=== PATIENT | male | born 1950 | race Caucasian/White ===

== ENCOUNTER → 2020-07-09 09:53 | Outpatient (CLI) | payer MEDICARE, OTHER, SELFPAY ==
[2020-07-09 13:55] LABS: Coronavirus 19 IgG Antibody Positive (Negative)
[2020-07-09 13:56] LABS: Coronavirus 19 IgM Antibody Positive (Negative)
--- NOTE | 2020-07-09 17:01 | PC.NURSE ---
Notified patient that covid antibody test was positive and to come in for a swab.
== END ==
PROVIDERS: Visit Provider Internal Medicine Gastroenterology
DX: Z01.812 Encounter for preprocedural laboratory examination (principal); Z20.822 Contact with and (suspected) exposure to COVID-19; Z86.16 Personal history of COVID-19; Z12.11 Encounter for screening for malignant neoplasm of colon
CPT/HCPCS: 36415; 86328; U0003

== ENCOUNTER 2020-08-15 10:29 | Day surgery (SDC) | payer MEDICARE, OTHER, SELFPAY ==
[2020-08-10 12:17] VITALS: BMI 25.8
[2020-08-15] VITALS (7 sets, daily range): BP systolic 104–145; BP diastolic 62–82; PULSE 62–78; RESP 12–18; TEMP 36.3–36.6; O2SAT 97–100
--- NOTE | 2020-08-15 11:13 | P.PN_ITS ---
[facility] Anesthesia Checklist - Patient Identification Patient Identification: Arm Band - Structural Data Admitted From: Home Planned Operative Procedure/s: colonoscopy Consent for Planned Operative Procedure(s) Verified: Yes Verified Documents: Surgical Consent, History and Physical - NPO Status Verified Time NPO: 00:00 - Additional verifications Anesthesia Reactions: No - Airway Assessment C-Spine Mobility Assessed: Yes (mp2) TMJ Mobility Assessed: Yes Dentition: Good Dentition - Neurological Assessment Level of Consciousness: Awake, Alert - Anesthesia Plan Anesthesia Risk discussed: Yes Anesthesia Plan: Verified ASA Class: I Anesthesia Type: MAC [facility] History I have reviewed the patient's past medical history: Yes Medical History: Denies:: Cancer, Diabetes Mellitus Type 1, Diabetes Mellitus Type 2, Internal Pacemaker, MRSA, Seizures *Have you ever received a pneumonia vaccine?: No *Have you received a flu vaccine this season?: No Anesthesia experience/problems:: nac Other Surgeries: Yes: Hernia Repair. No: Pacemaker Amputation: No Fractures: No - *Social History Last grade of school completed: Advanced degree Smoking Status: Never smoker Alcohol Intake: current Alcohol Intake Frequency:: a few times a week Substance Use Type: denies use *Occupational Status:: retired Housing: house Household Members: spouse *Travel in the last 8 weeks: None Family Hx:: Coronary Artery Disease, Diabetes
--- NOTE | 2020-08-15 11:43 | P.PCN_ITS ---
[facility] Procedure Note Procedure Note:: Colonoscopy Procedure Report: Colonoscopy with cold snare polypectomy and snare cautery Endoscopist: Angel Kapadia II, MD Referring physician: Donell Arteaga MD Date of Procedure: August 15, 2020 Equipment: Olympus 190 variable stiffness pediatric colonoscope Sedation: MAC sedation Indication: Mr. Michele is a 70-year-old gentleman who is here for diagnostic colonoscopy. For several months, he has had lower abdominal pain and some generalized abdominal pain. This began in the left lower quadrant. He does have occasional hemorrhoidal bleeding. More recently, he did have one bout of black tarry stools. He does take ibuprofen 3 times weekly. He also has had more constipation recently with bloating. He reports no weight loss or family history of colon cancer. His last colonoscopy was 16 years ago and was reportedly normal.. Procedure: Prior to the procedure, a history and physical exam was performed, and patient's medications and allergies were reviewed. The risks, benefits and alternatives of the sedation and procedure were discussed with the patient. All questions were answered and informed consent was obtained. The patient was brought to the procedure room. Patient identification and proposed procedure were verified by the physician and the nurse. The patient was placed in a left lateral decubitus position and the scope was passed under direct vision. Throughout the procedure, the patient's blood pressure, pulse, and oxygen saturations were monitored continuously. The colonoscopy was accomplished without difficulty. The patient tolerated the procedure well. Findings: On digital rectal examination there was normal rectal tone. There were no external hemorrhoids. The prostate was 2+, smooth, symmetric without nodules. The colonoscope was introduced through the anal canal to the rectum and advanced to the cecum. The ileocecal valve and appendiceal orifice were identified. The scope was advanced a short distance into the ileum which appeared grossly normal. The scope was then withdrawn into the colon. There were a total of 10 colon polyps (cecum x6 (3, 4, 4, 4, 5 and 7 mm), ascending x2 (5 and 6 mm), descending x1 (4 mm) and sigmoid x1 (15-16 mm)). All of these were removed via cold snare polypectomy except for the larger sigmoid polyp that was removed via snare cautery. There were scattered diverticuli throughout the descending and sigmoid colon (LEFT colon). The rectum itself was normal. Upon retroflexion within the rectum there were grade 1-2 internal hemorrhoids. The preparation was fair throughout with Marion Preparation Score of 7 out of 9. The cecal time was 16 minutes. Impression: 1. Colonic polyps x10 2. Left-sided diverticulosis 3. Grade 1-2 internal hemorrhoids Plan: I will follow up the polyp histology and recommend repeat screening/surveillance colonoscopy again in 1 to 2 years based upon the number of adenomatous polyps, size and histology. I will encourage dietary measures and bulk fiber supplementation on a maintenance basis.
== END 2020-08-15 12:41 | disposition home or self-care (01) ==
PROVIDERS: PCP Family Medicine; Visit Provider Internal Medicine Gastroenterology
PROC: 0DJD8ZZ Inspection of Lower Intestinal Tract, Via Natural or Artificial Opening Endoscopic (ICD-10-PCS; CPT 45378; principal; 2020-08-15 11:30)
DX: K63.5 Polyp of colon (principal); K57.30 Diverticulosis of large intestine without perforation or abscess without bleeding; K64.0 First degree hemorrhoids; Z82.49 Family history of ischemic heart disease and other diseases of the circulatory system; Z83.3 Family history of diabetes mellitus
CPT/HCPCS: 45385; 88305

== ENCOUNTER → 2020-11-17 14:31 | Outpatient (CLI) | payer MEDICARE, OTHER, SELFPAY ==
[2020-11-17 15:13] LABS: Blood Urea Nitrogen 14 mg/dl (9-20); Estimated Glomerular Filt Rate 95 ml/min (>60); GFR (African American) 115 ML/MIN (>60)
== END ==
PROVIDERS: Visit Provider Family Medicine
DX: Z01.818 Encounter for other preprocedural examination (principal)
CPT/HCPCS: 36415; 82565; 84520

== ENCOUNTER → 2020-11-22 10:22 | Outpatient (CLI) | payer MEDICARE, OTHER, SELFPAY ==
--- NOTE | 2020-11-22 10:26 | CT_ITS ---
PROCEDURE: CT ABDOMEN PELVIS W CON CLINICAL INDICATION: ADB AND PELVIC SWELLING,MASS OR LUMP, PENUMBILIC COMPARISON: No exams were available for comparison TECHNIQUE: IV Contrast: 75ML Isovue 370 Oral Contrast 450ml Redicat Axial images obtained with sagittal and coronal reformats. All CT scans at the facility use one or more dose reduction, viz: automated exposure control, ma/kV adjustment per patient size (including targeted exams where dose is matched to indication, i.e. head), or iterative reconstruction technique. FINDINGS: Lung bases show some scar versus atelectasis. There is mild diffuse fatty infiltration of the liver. No focal liver or splenic lesion. Gallbladder pancreas and adrenal glands are normal. There is severe left hydronephrosis and left hydroureter. There is mild right hydronephrosis and mild right hydroureter. There is a large lobular shaped mass associated with the prostate gland, measuring upwards of 4.5 centimeters x 6 centimeters x 5 centimeters in greatest AP transverse and craniocaudal dimensions. The urinary bladder is markedly distended arising superior to the level of about the L3 vertebral body. Findings are concerning for neoplasm of the prostate gland with obstruction of the bilateral UVJ regions left greater than right with associated bladder outlet obstruction as well. There is no free intraperitoneal air or fluid. There are some scattered small upper abdominal lymph nodes. Scattered diverticula noted on the colon without diverticulitis. No distended large or small bowel. No discrete abnormality of the seminal vesicles is noted. No inguinal or femoral hernias. Several variably sized bilateral inguinal lymph nodes are present. Some diffuse degenerative changes of lumbar spine are noted. No definitive lytic or blastic lesion. Some degenerative changes of both hip joints. IMPRESSION: Severe left hydronephrosis and left hydroureter with mild right hydronephrosis and mild right hydroureter with large lobular shaped mass associated with prostate gland. Marked distention of the urinary bladder. 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 Mild diffuse fatty infiltration of the liver. Scattered diverticula in the colon without diverticulitis. A few small nonspecific upper abdominal lymph nodes with several variably sized nonspecific bilateral inguinal lymph nodes. Diffuse degenerative changes of the lumbar spine with no definitive lytic or blastic lesion. Findings were discussed by telephone with Dr. Arteaga on 11/22/2020 at approximately 1500 hours. Dictated by: Thong Skaggs MD 11/22/2020 15:06 Thong Skaggs MD in [place] 11/22/2020 15:06
== END ==
PROVIDERS: PCP Family Medicine; Visit Provider Family Medicine
DX: R10.33 Periumbilical pain (principal); R19.05 Periumbilic swelling, mass or lump
CPT/HCPCS: 74177; Q9967

== ENCOUNTER → 2021-01-30 13:58 | Outpatient (CLI) | payer MEDICARE, OTHER, SELFPAY ==
--- NOTE | 2021-01-30 14:07 | XR_ITS ---
PROCEDURE: XR SHOULDER RT MIN 2V CLINICAL INDICATION: RT SHOULDER PAIN COMPARISON: No exams were available for comparison FINDINGS: No fracture or dislocation. No lytic or blastic change. There is normal mineralization. There are mild osteoarthritic changes of the glenohumeral joint and acromioclavicular joint. There is a slightly low lying humeral head. Calcification is present along the superior aspect of the humeral head consistent with calcific tendinitis. Other findings:None. IMPRESSION: Mild osteoarthritis of the AC joint and glenohumeral joint with calcific tendinitis of the supraspinatus tendon Dictated by: Stevenson Terrell MD 01/30/2021 16:00 Stevenson Terrell MD in [facility] 01/30/2021 16:00
--- NOTE | 2021-01-30 14:07 | XR_ITS ---
PROCEDURE: XR SHOULDER LT MIN 2V CLINICAL INDICATION: LT SHOULDER PAIN COMPARISON: No exams were available for comparison FINDINGS: No fracture or dislocation. No lytic or blastic change. There is normal mineralization. Mild osteoarthritic changes are present at the acromioclavicular and glenohumeral joint. Faint calcification noted superior to the greater tuberosity suggesting calcific tendinitis. Other findings:None. IMPRESSION: Osteoarthritis with calcific tendinitis of the supraspinatus tendon Dictated by: Stevenson Terrell MD 01/30/2021 17:36 Stevenson Terrell MD in [facility] 01/30/2021 17:36
--- NOTE | 2021-01-30 14:07 | XR_ITS ---
PROCEDURE: XR CERVICAL SPINE 5V CLINICAL INDICATION: CERVICAL ARTHRITIS COMPARISON: No exams were available for comparison FINDINGS: There is normal alignment. Degenerative disc disease is present at C5-C6. There is 3 mm retrolisthesis of C5. Anterior osteophytes are present at C4 and C5 with small posterior osteophytes at C5-C6 and C6-C7. Foraminal narrowing is present on the right at C3-C4 and C5-C6 and on the left at C4-C5 and C5-C6. No cervical rib. No fracture or dislocation. Carotid artery calcification is present on the left. There are hypertrophic changes also at the C1-C2 lateral mass junctions. IMPRESSION: Cervical spondylosis as described above Dictated by: Stevenson Terrell MD 01/30/2021 17:34 Stevenson Terrell MD in [facility] 01/30/2021 17:34
== END ==
PROVIDERS: PCP Family Medicine; Visit Provider Family Medicine
DX: M25.512 Pain in left shoulder (principal); M25.511 Pain in right shoulder; M17.12 Unilateral primary osteoarthritis, left knee; M54.12 Radiculopathy, cervical region; R29.898 Other symptoms and signs involving the musculoskeletal system
CPT/HCPCS: 72050; 73030

== ENCOUNTER 2022-11-08 08:14 | Emergency (ER) | payer MEDICARE, OTHER, SELFPAY ==
[2022-11-08 08:25] VITALS: BP 150/78; PULSE 89; RESP 21; TEMP 36.9; O2SAT 100; BMI 25.4
--- NOTE | 2022-11-08 08:41 | EXP.UTC ---
Discharge Plan Disposition Patient Disposition: Home, Self-Care Condition: Good Prescriptions Prescriptions: New prednisone 10 mg tablet 10 mg PO BID 5 Days Qty: 10 0RF azithromycin [Zithromax Z-Mahad] 250 mg tablet See Rx Instructions .ROUTE .COMPLEX 5 Days Qty: 6 0RF Rx Instructions: For 250 mg dose pack: take 500 mg today (day 1), then 250 mg for 4 days (days 2-5) benzonatate 100 mg capsule 100 mg PO TID PRN (Reason: cough) Qty: 30 0RF guaifenesin [Mucinex] 600 mg tablet extended release 12hr 600 - 1,200 mg PO BID PRN (Reason: Congestion) Qty: 20 0RF Referrals Follow up/Referrals: Provider,Referral, MD [Primary Care Provider] - See instructions Activity Restrictions/Add. Instructions Additional Instructions/Restrictions: Start antibiotic today. Be sure to complete entire prescription even if feeling better Monitor temp. Tylenol every 4 hours as needed and / or ibuprofen every 6 hours as needed ( As long as your primary care physician has told you that it ok to take both. For fever/aches/pains ER if no less than 101 despite Tylenol or Motrin Humidifier/vaporizer or hot steamy shower Mucinex during the day for your cough and cough suppressant only at night. Be sure to drink lots of water. *Tessalon Perles will not cause drowsiness but use at bedtime to help stop cough so that you may get some rest. Start oral steriods tomorrow 11/09/22 Follow up IMMEDIATELY for new or worsening of symptoms OR no noticeable improvement over the next 48-72 hours. 911 immediately for any life threatening symptoms such as chest pain or difficulty breathing Clinical Impressions Clinical Impression: Bronchitis Instructions Patient Instructions: Acute Bronchitis, DI for Sinusitis Discharge ED Provider: Nimo Vila [facility] General Stated complaint: cough, chest congestion Mode of Arrival: Ambulatory Source of Information: Patient Limitations: No Limitations Time Seen by Provider: 11/08/22 08:41 Description of Symptoms (Recalled from Triage Doc. by RN): PATIENT C/O PRODUCTIVE COUGH AND CHEST CONGESTION X 9 DAYS. REPORTS COUGH IS WORSE AT NIGHT HEENT Symptoms (Recalled from RN notes): No Resp Symptoms (Recalled from RN notes): Yes Skin Symptoms (Recalled from RN notes): No MS Symptoms (Recalled from RN notes): No Functional Status (Recalled from RN notes): WNL History of Present Illness Provider Complaint: Patient states that he has been having cough and chest congestion for about 9 days that is productive at times States that his cough gets worse at night when he lays down States he has been taking OTC medications but not helped thinks he may have bronchitis or something Related Data Previous Rx's Medication Instructions Recorded azithromycin 250 mg tablet See Rx Instructions PO .COMPLEX 5 11/08/22 (Zithromax Z-Mahad) days #6 tabs benzonatate 100 mg capsule 100 mg PO TID PRN cough #30 caps 11/08/22 guaifenesin 600 mg tablet, 600 - 1,200 mg PO BID PRN 11/08/22 extended release 12 hr (Mucinex) Congestion #20 tabs prednisone 10 mg tablet 10 mg PO BID 5 days #10 tabs 11/08/22 Allergies Allergy/AdvReac Type Severity Reaction Status Date / Time No Known Allergies Allergy Verified 08/10/20 12:07 Worker's Comp Is this a Worker's Comp case?: No [facility] Disclaimer: The information contained in this section may have been updated after the patient was seen, as this information can be updated by other users. Medical History (Updated 11/08/22 @ 08:48 by Nimo Vila APRN) Depression Prostate disorder Surgical History (Updated 11/08/22 @ 08:40 by Jane Stock RN) History of inguinal hernia repair History of transurethral resection of prostate Social History Smoking Status: Never smoker second hand exposure: No alcohol intake: current substance use type: denies use current occupational status: retired Travel in the last 8 wee
[2022-11-08 09:15] VITALS: BP 150/78; PULSE 89; RESP 21; TEMP 36.9; O2SAT 100
== END 2022-11-08 09:24 | disposition home or self-care (01) ==
PROVIDERS: Emergency Provider Nurse Practitioner
DX: J20.9 Acute bronchitis, unspecified (principal); J01.90 Acute sinusitis, unspecified; F32.9 Major depressive disorder, single episode, unspecified
CPT/HCPCS: 96372; 99204; 99212; G0463

== ENCOUNTER 2022-11-10 10:46 | Emergency (ER) | payer MEDICARE, OTHER, SELFPAY ==
[2022-11-10 10:50] VITALS: BP 138/75; PULSE 99; RESP 16; TEMP 36.6; O2SAT 97; BMI 26.2
--- NOTE | 2022-11-10 11:12 | EXP.UTC ---
Discharge Plan Disposition Patient Disposition: Home, Self-Care Condition: Good Prescriptions Prescriptions: New promethazine-DM 6.25-15 mg/5 mL Syrup 5 ml PO Q6H PRN (Reason: Cough) Qty: 240 0RF No Action prednisone 10 mg tablet 10 mg PO BID 5 Days Qty: 10 0RF azithromycin [Zithromax Z-Mahad] 250 mg tablet See Rx Instructions .ROUTE .COMPLEX 5 Days Qty: 6 0RF Rx Instructions: For 250 mg dose pack: take 500 mg today (day 1), then 250 mg for 4 days (days 2-5) benzonatate 100 mg capsule 100 mg PO TID PRN (Reason: cough) Qty: 30 0RF guaifenesin [Mucinex] 600 mg tablet extended release 12hr 600 - 1,200 mg PO BID PRN (Reason: Congestion) Qty: 20 0RF Referrals Follow up/Referrals: Donell Arteaga MD [Primary Care Provider] - See instructions Activity Restrictions/Add. Instructions Additional Instructions/Restrictions: Start the medications that were prescribed last Saturday. Take the medications as directed. Follow up with your regular doctor. The cough medication (promethazine dm) will make you drowsy, so don't drive or operate heavy machinery after taking it. GO TO THE ER FOR ANY WORSENING SYMPTOMS Clinical Impressions Clinical Impression: Bronchitis Instructions Patient Instructions: Acute Bronchitis, DI for Acute Bronchitis Discharge ED Provider: [place] [facility] [place] General Stated complaint: possible bronchitis Time Seen by Provider: 11/10/22 11:12 History of Present Illness Provider Complaint: He states that for the past 1 week he has had chest and sinus congestion. Related Data Previous Rx's Medication Instructions Recorded azithromycin 250 mg tablet See Rx Instructions PO .COMPLEX 5 11/08/22 (Zithromax Z-Mahad) days #6 tabs benzonatate 100 mg capsule 100 mg PO TID PRN cough #30 caps 11/08/22 guaifenesin 600 mg tablet, 600 - 1,200 mg PO BID PRN 11/08/22 extended release 12 hr (Mucinex) Congestion #20 tabs prednisone 10 mg tablet 10 mg PO BID 5 days #10 tabs 11/08/22 promethazine-DM 6.25 mg-15 mg/5 mL 5 ml PO Q6H PRN Cough #240 mL 11/10/22 oral syrup Allergies Allergy/AdvReac Type Severity Reaction Status Date / Time No Known Allergies Allergy Verified 08/10/20 12:[address] [facility] Disclaimer: The information contained in this section may have been updated after the patient was seen, as this information can be updated by other users. Medical History Depression Prostate disorder Surgical History History of inguinal hernia repair History of transurethral resection of prostate Social History Smoking Status: Never smoker second hand exposure: No alcohol intake: current substance use type: denies use current occupational status: retired Travel in the last 8 weeks: None household members: spouse housing: house caffeine: Yes ROS Obtained: Yes All systems reviewed & no additional complaints except as documented Constitutional Constitutional: Denies chills and Denies fever(s) Eyes Eyes: Denies eye discharge ENT Ears, Nose, Mouth, and Throat: Denies dizziness, Denies otalgia and Denies sore throat Cardiovascular Cardiovascular: Denies chest pain Respiratory Respiratory: Denies shortness of breath, Reports chest congestion, Reports cough, Denies stridor and Denies wheezing Gastrointestinal Gastrointestingal: Denies nausea or vomiting Musculoskeletal Musculoskeletal: Reports system reviewed and no additional complaints, except as documented and Denies arthralgias Integumentary/Breasts Skin/Breast: Denies rash Neurologic Neurologic: Denies dizziness and Denies paresthesias Allergic/Immunologic Allergic/Immunologic: Denies wheezing Physical Exam General General appearance: alert and in no apparent distress Head Head exam: atraumatic, normocephalic and normal i
--- NOTE | 2022-11-10 11:16 | XR_ITS ---
PROCEDURE INFORMATION: Exam: XR Chest Exam date and time: 11/10/2022 11:11 AM Age: 72 years old Clinical indication: Cough TECHNIQUE: Imaging protocol: Radiologic exam of the chest. Views: 2 views. COMPARISON: CR XR CERVICAL SPINE 5V 01/30/2021 2:20 PM FINDINGS: Lungs: There are scattered indistinct nodular opacities lower lung zones, nonspecific in needs further evaluation. There is also patchy interstitial infiltrate right lung base concerning for pneumonia. Pleural spaces: Unremarkable. No pleural effusion. No pneumothorax. Heart/Mediastinum: Unremarkable. No cardiomegaly. Bones/joints: Unremarkable for age. IMPRESSION: 1. Patchy right basilar infiltrate possibly secondary to pneumonia . 2. Superimposed scattered ill-defined nodular opacities both lung castillo, nonspecific. Recommend follow-up CT chest for further evaluation.
[2022-11-10 12:02] VITALS: BP 138/75; PULSE 99; RESP 16; TEMP 36.6; O2SAT 97
== END 2022-11-10 12:03 | disposition home or self-care (01) ==
PROVIDERS: Emergency Provider Nurse Practitioner Family; PCP Family Medicine
DX: J20.9 Acute bronchitis, unspecified (principal); F32.9 Major depressive disorder, single episode, unspecified
CPT/HCPCS: 71046; 99212; 99214; G0463

== ENCOUNTER 2024-03-12 13:33 | Emergency (ER) | payer MEDICARE, OTHER, SELFPAY ==
[2024-03-12 13:50] VITALS: BP 138/89; PULSE 97; RESP 14; TEMP 36.9; O2SAT 97; BMI 25.8
[2024-03-12 14:00] VITALS: BP 117/72; PULSE 96; O2SAT 98
--- NOTE | 2024-03-12 14:05 | XR_ITS ---
FINAL REPORT CLINICAL HISTORY: pain FINDINGS: Left knee Three views were obtained. There is no acute fracture or dislocation. There is moderate chondrocalcinosis in the medial and lateral compartments joint spaces. IMPRESSION: No acute process. Reviewed, Interpreted and Dictated by Dilshad Wang MD Transcribed by Claudia Panda Authenticated and [facility]
--- NOTE | 2024-03-12 14:05 | CT_ITS ---
FINAL REPORT TECHNIQUE: Axial images were obtained of the cervical spine by computed tomography. Coronal and sagittal reconstruction process performed. This study was performed with techniques to keep radiation doses as low as reasonably achievable (ALARA). Individualized dose reduction techniques using automated exposure control or adjustment of mA and/or kV according to the patient''s size were employed. CLINICAL HISTORY: fall >65 pain FINDINGS: Cervical vertebrae show normal height. There is mild disc space narrowing at C5-6 and C6-7 with endplate hypertrophy and moderate bilateral neural foraminal narrowing. There is no malalignment. The facets are properly aligned. IMPRESSION: No fracture. Degenerative change at C5-6 and C6-7 as detailed above. Reviewed, Interpreted and Dictated by Dilshad Wang MD Transcribed by Claudia Panda Authenticated and [facility]
--- NOTE | 2024-03-12 14:05 | XR_ITS ---
FINAL REPORT CLINICAL HISTORY: pain FINDINGS: Left hip Three views were obtained. There is no acute fracture or dislocation. The joint spaces appear normal. No soft tissue abnormality is identified. IMPRESSION: No acute process. Reviewed, Interpreted and Dictated by Dilshad Wang MD Transcribed by Claudia Panda Authenticated and [facility]
--- NOTE | 2024-03-12 14:05 | XR_ITS ---
FINAL REPORT CLINICAL HISTORY: pain FINDINGS: Left femur Two views were obtained. There is no acute fracture or dislocation. There is moderate chondrocalcinosis in the medial and lateral compartments of the knee. IMPRESSION: No acute process. Reviewed, Interpreted and Dictated by Dilshad Wang MD Transcribed by Claudia Panda Authenticated and . [facility]
--- NOTE | 2024-03-12 14:05 | CT_ITS ---
FINAL REPORT TECHNIQUE: Axial images were obtained of the thoracic spine by computed tomography. Coronal and sagittal reconstruction process performed. This study was performed with techniques to keep radiation doses as low as reasonably achievable (ALARA). Individualized dose reduction techniques using automated exposure control or adjustment of mA and/or kV according to the patient's size were employed. CLINICAL HISTORY: fall >65 pain FINDINGS: Thoracic vertebrae show normal height. Disc spaces are well-preserved. There is no malalignment. The facets are properly aligned. IMPRESSION: No fracture. Reviewed, Interpreted and Dictated by Dilshad Wang MD Transcribed by Claudia Panda Authenticated and . [facility]
--- NOTE | 2024-03-12 14:05 | CT_ITS ---
FINAL REPORT TECHNIQUE: After the administration of intravenous contrast, axial images were obtained through the abdomen and pelvis by computed tomography. This study was performed with technique to keep radiation doses as low as reasonably achievable, (ALARA). Individualized dose reduction techniques using automated exposure control or adjustment of the MA and/or KV according to the patient's size were employed. CLINICAL HISTORY: LLQ pain, h/o diverticulitis COMPARISON: 11/22/2020 FINDINGS: Abdomen: The lung bases are clear. The liver is normal in size and attenuation. Gallbladder is present. There are calcified granulomas of the spleen. The adrenals are normal. The pancreas is unremarkable. The kidneys enhance appropriately. The aorta is normal in caliber. There is no free fluid or adenopathy. Pelvis: The appendix is not identified. The urinary bladder is normal in size but with mild wall thickening of uncertain significance. Prostate has decreased in size from prior exam. There is extensive inflammatory reaction in the left lower quadrant at the junction of the descending and sigmoid colon surrounding a diverticula. Findings are consistent with acute diverticulitis. There is no evidence of abscess. This is best seen on images 87-92 of series 3. IMPRESSION: Acute, uncomplicated diverticulitis at the junction of the descending and sigmoid colon. Nonspecific urinary bladder wall thickening. Reviewed, Interpreted and Dictated by Dilshad Wang MD Transcribed by Regina Morfin Authenticated and [facility]
--- NOTE | 2024-03-12 14:05 | CT_ITS ---
FINAL REPORT TECHNIQUE: Axial CT images were performed through the head. Coronal reformatted images were submitted. This study was performed with techniques to keep radiation doses as low as reasonably achievable (ALARA). Individualized dose reduction techniques using automated exposure control or adjustment of mA and/or kV according to the patient's size were employed. CLINICAL HISTORY: fall >65 pain FINDINGS: The ventricles are normal in size. There is no evidence of hemorrhage. There is no mass or edema identified. There is no abnormal extra-axial fluid seen. There is mild mucoperiosteal thickening in the left maxillary sinus. IMPRESSION: No acute intracranial process. Reviewed, Interpreted and Dictated by Dilshad Wang MD Transcribed by Claudia Panda Authenticated and [facility]
--- NOTE | 2024-03-12 14:07 | CT_ITS ---
FINAL REPORT TECHNIQUE: Axial images were obtained of the lumbar spine by computed tomography. Coronal and sagittal reconstruction process performed. This study was performed with techniques to keep radiation doses as low as reasonably achievable (ALARA). Individualized dose reduction techniques using automated exposure control or adjustment of mA and/or kV according to the patient''s size were employed. CLINICAL HISTORY: fall >65 pain FINDINGS: Lumbar vertebrae show normal height. There is moderate disc space narrowing at L5-S1 with vacuum disc phenomenon. There is no malalignment. The facets are properly aligned. L1-2: No significant disc bulge or protrusion. L2-3: No significant disc bulge or protrusion. L3-4: Mild diffuse disc bulge is present with mild endplate hypertrophy. There is mild bilateral neural foraminal narrowing. L4-5: Mild diffuse disc bulge is present with endplate hypertrophy. There is mild to moderate bilateral neural foraminal narrowing. L5-S1: Mild to moderate diffuse disc bulge is present with mild to moderate bilateral neural foraminal narrowing. IMPRESSION: No fracture. Multilevel degenerative disc disease, most evident at L5-S1. Reviewed, Interpreted and Dictated by Dilshad Wang MD Transcribed by Claudia Panda Authenticated and . [facility]
--- NOTE | 2024-03-12 14:09 | HMH.EDGENADL ---
Discharge Plan Disposition Patient Disposition: Home, Self-Care Condition: Fair Prescriptions Prescriptions: New amoxicillin-pot clavulanate 875-125 mg tablet 1 tab PO BID 10 Days Qty: 20 0RF No Action prednisone 10 mg tablet 10 mg PO BID 5 Days Qty: 10 0RF azithromycin [Zithromax Z-Mahad] 250 mg tablet See Rx Instructions .ROUTE .COMPLEX 5 Days Qty: 6 0RF Rx Instructions: For 250 mg dose pack: take 500 mg today (day 1), then 250 mg for 4 days (days 2-5) benzonatate 100 mg capsule 100 mg PO TID PRN (Reason: cough) Qty: 30 0RF guaifenesin [Mucinex] 600 mg tablet extended release 12hr 600 - 1,200 mg PO BID PRN (Reason: Congestion) Qty: 20 0RF promethazine-DM 6.25-15 mg/5 mL Syrup 5 ml PO Q6H PRN (Reason: Cough) Qty: 240 0RF Referrals Follow up/Referrals: Donell Arteaga MD [Primary Care Provider] - See instructions Activity Restrictions/Add. Instructions Additional Instructions/Restrictions: Your CAT scans of your head and spines were unremarkable from emergency standpoint. You did have uncomplicated diverticulitis on the CT scan of your abdomen. I recommend that you follow-up outpatient with our general surgeon, referral has been made. Return with any significant or acute worsening of your symptoms such as severe abdominal pain fevers chills etc. Clinical Impressions Clinical Impression: Diverticulitis, Fall, Abdominal pain, Knee pain, left Instructions Patient Instructions: DI for Acute Abdominal Pain Print Language Print Language: Hungarian Discharge ED Provider: Loreto Nicholas General Adult HPI <Loreto Nicholas DO - Last Filed: 03/12/24 15:23> General Chief complaint: Abdominal Pain Stated complaint: left knee pain, LLQ pain Time Seen by Provider: 03/12/24 13:55 Mode of Arrival: Ambulatory Source of Information: Patient Limitations: No Limitations Description of Symptoms (Recalled from ER Triage Doc. by RN): pt states that he has two separate complaints for todays visit. pt first c/o L knee joint pain that is aching in nature and only painful with weight bearing. pts knee is not hurting at this time. However, he reports when stepping in a hole this am it gave out and he decided he should have it checked out. pts second complaint is LLQ pain that is sore in nature and a 1/10. pt reports this feels exactly the same as when he previously had diverticulits. pt states the pain worsens with palpation, he has been nauseated, and he was constipated for a few days earlier this week but today it has turned to diarrhea. pt denies urinary issues. History of Present Illness HPI narrative: This patient is a 73-year-old male presenting to the emergency department for evaluation with concern for multiple complaints. Patient reports that initially, 3 weeks ago he started having some generalized joint pains. He states that he felt he was having an inflammatory process in all of his joints. He notes that he has been diagnosed with rheumatoid arthritis in the past but has not really had issues with it. He notes that it then went down to only 3 joints, and now its only his left knee. No redness, warmth, or other concerns. He is still able to bear weight. No known falls or traumatic injuries. He notes that the joint just feels achy. He notes that he also feels like he is having diverticulitis. He says that he has left lower quadrant pain that feels like diverticular pain and has been going on for several days. He notes that he is having some nausea and diarrhea but denies any fevers, chills, vomiting, or urinary symptoms. Additionally, today, he stepped in a hole causing him to fall to the ground. He states that he landed on his back, which is done him for a minute. He notes that he got lightheaded as if he was going to blackout when this happened, but he thinks that the fall just stunned him. He was able to get up on his own without any issue and has been ambulatory since. No other concerns noted at this time. Related Data Previous Rx's ?Medication ?Instructions ?Recorded azithromycin 250 mg tablet See Rx Instructions PO .COMPLEX 5 11/08/22 (Zithromax Z-Mahad) days #6 tabs benzonatate 100 mg capsule 100 mg PO TID PRN cough #30 caps 11/08/22 guaifenesin 600 mg tablet, 600 - 1,200 mg (1 - 2 x 600 mg) PO 11/08/22 extended release 12 hr (Mucinex) BID PRN Congestion #20 tabs prednisone 10 mg tablet 10 mg PO BID 5 days #10 tabs 11/08/22 promethazine-DM 6.25 mg-15 mg/5 mL 5 ml PO Q6H PRN Cough #240 mL 11/10/22 oral syrup amoxicillin 875 mg-potassium 1 tab PO BID 10 days #20 tabs 03/12/24 clavulanate 125 mg tablet Allergies Allergy/AdvReac Type Severity Reaction Status Date / Time No Known Allergies Allergy Verified 03/12/24 13:58 PFSH <Loreto Nicholas DO - Last Filed: 03/12/24 15:23> [facility] Disclaimer: The information contained in this section may have been updated after the patient was seen, as this information can be updated by other users. Medical History Prostate disorder Depression Surgical History History of inguinal hernia repair History of transurethral resection of prostate Social History Smoking Status: Never smoker second hand exposure: No alcohol intake: current alcohol intake frequency: a few times a week substance use type: denies use current occupational status: retired Travel in the last 8 weeks: None household members: spouse housing: house caffeine: Yes Other Medical History Have you received the Flu Vaccine for this season: No Have you received the Pneumonia Vaccine: No <Loreto Nicholas DO - Last Filed: 03/12/24 15:23> ROS Obtained: Yes All systems reviewed & no additional complaints except as documented Physical Exam <Loreto Nicholas DO - Last Filed: 03/12/24 15:23> General General appearance: alert and in no apparent distress Head Head exam: atraumatic and normocephalic Eye Eye exam: Present normal appearance, PERRL and EOMI ENT ENT exam: Present normal exam, normal oropharynx, mucous membranes moist and normal external ear exam Neck Neck exam: Present normal inspection, full ROM and trachea midline; Absent tenderness Chest Chest inspection: Present normal inspection and symmetric chest wall rise; Absent tenderness Respiratory Respiratory exam: Present normal lung sounds bilaterally; Absent respiratory distress, wheezes, stridor or accessory muscle use Cardiovascular Cardiovascular exam: Present regular rate and normal rhythm Abdominal Exam Abdominal exam: Present soft and tenderness (Left lower quadrant); Absent distention or guarding Extremities Exam Extremities exam: Present normal inspection, full ROM and normal capillary refill; Absent tenderness or edema Back Exam Back exam: Present normal inspection and full ROM; Absent tenderness Neurological Exam Neurological exam: Present alert, oriented X3, CN II-XII intact and normal gait; Absent motor sensory deficit Psychiatric Psychiatric exam: Present normal affect and normal mood Skin Skin exam: Present warm and dry Medical Decision Making <Loreto Nicholas, DO - Last Filed: 03/12/24 15:23> Medical Records Medical records reviewed: Yes I reviewed the patient's medical records. Screening: Per USPSTF and CDC recommendations, given the prevalence of disease in our region, it is our hospital?s policy to screen for HIV and viral Hepatitis for all patients aged 18 and over and those with ongoing risk factors. [place] Inquiry Pt receiving controlled substance: No Vital Signs: 03/12/24 13:50 03/12/24 14:00 03/12/24 14:55 Temperature 98.4 F Temperature Source Oral Pulse Rate 96 H 92 H Pulse Rate [Left] 97 H Respiratory Rate 14 Blood Pressure 117/72 137/76 Blood Pressure [Right Arm] 138/89 Blood Pressure Mean [Right Arm] 105 Blood Pressure Source [Right Arm] Automatic Cuff Blood Pressure Position [Right Arm] Sitting 02 Sat by Pulse Oximetry 97 98 97 Oxygen Delivery Method Room Air Room Air Room Air 03/12/24 15:00 Temperature Temperature Source Pulse Rate 93 H Pulse Rate [Left] Respiratory Rate Blood Pressure 135/73 Blood Pressure [Right Arm] Blood Pressure Mean [Right Arm] Blood Pressure Source [Right Arm] Blood Pressure Position [Right Arm] 02 Sat by Pulse Oximetry 98 Oxygen Delivery Method Room Air Lab Data Lab results reviewed: Yes I reviewed the patient's lab results. Lab Results 03/12/24 13:42: Urine Color Yellow, Urine Appearance Clear, Urine pH 6.5, Ur Specific [place] 1.010, Urine Protein Negative, Urine Glucose (UA) Negative, Urine Ketones Trace, Urine Blood Negative, Urine Nitrate Negative, Urine Bilirubin Negative, Urine Urobilinogen 0.2, Ur Leukocyte Esterase Negative, Urine RBC None, Urine WBC Occasional, Ur Squamous Epith Cells None, Urine Bacteria Trace 03/12/24 13:47: WBC 12.0 H, RBC 5.75, Hgb 16.4, Hct 49.2, MCV 85.6, MCH 28.5, MCHC 33.3, RDW 13.7, Plt Count 260, MPV 7.3 L, Neut % (Auto) 83.2 H, Lymph % (Auto) 9.4 L, [place] % (Auto) 6.2, Eos % (Auto) 0.6, Baso % (Auto) 0.5, Neut # (Auto) 10.0 H, Lymph # (Auto) 1.1, [place] # (Auto) 0.8, Eos # (Auto) 0.1, Baso # (Auto) 0.1, ESR 9, Sodium 133 L, Potassium 3.6, Chloride 95 L, Carbon Dioxide 26, Anion Gap 15.6 H, BUN 15, Creatinine 0.90, Estimated Creat Clear 67, Estimated GFR 82, Est GFR ( Amer) 100, Glucose 122 H, Calcium 9.9, Total Bilirubin 1.5 H, AST 27, ALT 21, Alkaline Phosphatase 50, C-Reactive Protein 93.5 H, Total Protein 7.9, Albumin 4.9, Globulin 3.0, Albumin/Globulin Ratio 1.6, Lipase 64, HIV 1&2 Antibody Rapid Nonreactive 03/12/24 13:47 03/12/24 13:47 Orders (Tests/Meds): ED MEDICATIONS Discontinued Medications Generic Name Dose Route Start Last Admin Trade Name Livia PRN Reason Stop Dose Admin Acetaminophen 1,000 mg 03/12/24 14:53 03/12/24 15:12 Acetaminophen 500mg Tab PO 03/12/24 14:54 Not Given ONCE ONE Lactated Ringer's 1,000 mls @ 999 mls/hr 03/12/24 14:53 03/12/24 15:08 Lactated Ringer's 1000 Ml Bag IV 03/12/24 15:53 999 mls/hr .Q1H1M ONE Administration Iopamidol 75 ml 03/12/24 14:51 03/12/24 14:51 Iopamidol-370 (76%);100ml Bottle IV 03/12/24 14:52 75 ml ONCE ONE Administration Ketorolac Tromethamine 15 mg 03/12/24 14:53 03/12/24 15:08 Ketorolac 30mg/Ml Vial IV 03/12/24 14:54 15 mg ONCE ONE Administration Ondansetron HCl 4 mg 03/12/24 14:53 03/12/24 15:08 Ondansetron 4mg/2ml Vial IV 03/12/24 14:54 4 mg ONCE ONE Administration Sodium Chloride 10 ml 03/12/24 14:51 03/12/24 14:51 Sodium Chloride 0.9% 10ml Syr (Rad Only) IV 03/12/24 14:52 10 ml ONCE ONE Administration ORDERS Category Date Time Status CT abdomen pelvis w con Stat Cat Scan 03/12/24 14:[address] cervical spine wo con Stat Cat Scan 03/12/24 14:[address] head/brain wo con Stat Cat Scan 03/12/24 14:[address] lumbar spine wo con Stat Cat Scan 03/12/24 14:[address] thoracic spine wo con Stat Cat Scan 03/12/24 14:05 Completed Femur XR left 2 views [XR femur LT 2V] Stat Exams 03/12/24 14:05 Completed Hip XR left minimum 2 views [XR hip LT 2-3V w/pelvis] Exams 03/12/24 14:05 Completed Stat Knee XR left 3 views [XR knee LT 3V] Stat Exams 03/12/24 14:05 Completed CBC w/Auto Diff [Complete Blood Count Auto Diff] Stat Lab 03/12/24 13:47 Completed CMP [Comprehensive Metabolic Panel] Stat Lab 03/12/24 13:47 Completed CRP [C-Reactive Protein] Stat Lab 03/12/24 13:47 Completed ESR [Erythrocyte Sedimentation Rate] Stat Lab 03/12/24 13:47 Completed HIV (1&2) Antibody Rapid Stat Lab 03/12/24 13:47 Completed Hep C Ab with Reflex to RNA Stat Lab 03/12/24 13:47 Received Lipase Stat Lab 03/12/24 13:47 Completed UA [Urinalysis and Microscopic] Stat Lab 03/12/24 13:42 Completed ECG Data Tracing #1: I reviewed this ECG and interpreted as documented below: Normal sinus rhythm with a ventricular rate of [address] changes concerning for ischemia. Normal axis and intervals ECG initial impression date: 03/12/24 ECG initial impression time: 14:59 Medical Decision Narrative: In summary, this patient is a 73-year-old male presenting to the Emergency Department for evaluation of multiple complaints including joint pains, left lower quadrant pain concerning for diverticulitis, and fall today. Differential diagnoses considered include but are not limited to traumatic injury from fall, arthritis flare, septic arthritis, gouty arthritis, diverticulitis, colitis, constipation. Ruling out the most morbid conditions drove assessment. On exam, the patient is very well-appearing. He has mild left lower quadrant tenderness but otherwise abdominal exam is benign. He is full range of motion of his left knee with no redness, warmth, or significant effusion that would be concerning for septic arthritis. He is still able to bear weight as well, which also makes this less concerning. Workup included CBC, CMP, lipase, urinalysis, EKG, CT head without contrast, CT C/T/L-spine without contrast, CT abdomen and pelvis with IV contrast, and x-rays of the painful left lower extremity. Labs obtained demonstrated a mild leukocytosis, mildly elevated anion gap, mild hyponatremia, mildly elevated bilirubin. CRP is elevated. EKG is reassuring. CT scans and x-rays pending. Patient care signed out to the oncoming provider, Dr. Barnett. <Diana Barnett MD - Last Filed: 03/12/24 16:08> Vital Signs: 03/12/24 13:50 03/12/24 14:00 03/12/24 14:55 Temperature 98.4 F Temperature Source Oral Pulse Rate 96 H 92 H Pulse Rate [Left] 97 H Respiratory Rate 14 Blood Pressure 117/72 137/76 Blood Pressure [Right Arm] 138/89 Blood Pressure Mean [Right Arm] 105 Blood Pressure Source [Right Arm] Automatic Cuff Blood Pressure Position [Right Arm] Sitting 02 Sat by Pulse Oximetry 97 98 97 Oxygen Delivery Method Room Air Room Air Room Air 03/12/24 15:00 Temperature Temperature Source Pulse Rate 93 H Pulse Rate [Left] Respiratory Rate Blood Pressure 135/73 Blood Pressure [Right Arm] Blood Pressure Mean [Right Arm] Blood Pressure Source [Right Arm] Blood Pressure Position [Right Arm] 02 Sat by Pulse Oximetry 98 Oxygen Delivery Method Room Air Lab Data Lab Results 03/12/24 13:42: Urine Color Yellow, Urine Appearance Clear, Urine pH 6.5, Ur Specific [place] 1.010, Urine Protein Negative, Urine Glucose (UA) Negative, Urine Ketones Trace, Urine Blood Negative, Urine Nitrate Negative, Urine Bilirubin Negative, Urine Urobilinogen 0.2, Ur Leukocyte Esterase Negative, Urine RBC None, Urine WBC Occasional, Ur Squamous Epith Cells None, Urine Bacteria Trace 03/12/24 13:47: WBC 12.0 H, RBC 5.75, Hgb 16.4, Hct 49.2, MCV 85.6, MCH 28.5, MCHC 33.3, RDW 13.7, Plt Count 260, MPV 7.3 L, Neut % (Auto) 83.2 H, Lymph % (Auto) 9.4 L, [place] % (Auto) 6.2, Eos % (Auto) 0.6, Baso % (Auto) 0.5, Neut # (Auto) 10.0 H, Lymph # (Auto) 1.1, [place] # (Auto) 0.8, Eos # (Auto) 0.1, Baso # (Auto) 0.1, ESR 9, Sodium 133 L, Potassium 3.6, Chloride 95 L, Carbon Dioxide 26, Anion Gap 15.6 H, BUN 15, Creatinine 0.90, Estimated Creat Clear 67, Estimated GFR 82, Est GFR ( Amer) 100, Glucose 122 H, Calcium 9.9, Total Bilirubin 1.5 H, AST 27, ALT 21, Alkaline Phosphatase 50, C-Reactive Protein 93.5 H, Total Protein 7.9, Albumin 4.9, Globulin 3.0, Albumin/Globulin Ratio 1.6, Lipase 64, HIV 1&2 Antibody Rapid Nonreactive Orders (Tests/Meds): ED MEDICATIONS Discontinued Medications Generic Name Dose Route Start Last Admin Trade Name Freq PRN Reason Stop Dose Admin Acetaminophen 1,000 mg 03/12/24 14:53 03/12/24 15:12 Acetaminophen 500mg Tab PO 03/12/24 14:54 Not Given ONCE ONE Lactated Ringer's 1,000 mls @ 999 mls/hr 03/12/24 14:53 03/12/24 15:08 Lactated Ringer's 1000 Ml Bag IV 03/12/24 15:53 999 mls/hr .Q1H1M ONE Administration Iopamidol 75 ml 03/12/24 14:51 03/12/24 14:51 Iopamidol-370 (76%);100ml Bottle IV 03/12/24 14:52 75 ml ONCE ONE Administration Ketorolac Tromethamine 15 mg 03/12/24 14:53 03/12/24 15:08 Ketorolac 30mg/Ml Vial IV 03/12/24 14:54 15 mg ONCE ONE Administration Ondansetron HCl 4 mg 03/12/24 14:53 03/12/24 15:08 Ondansetron 4mg/2ml Vial IV 03/12/24 14:54 4 mg ONCE ONE Administration Sodium Chloride 10 ml 03/12/24 14:51 03/12/24 14:51 Sodium Chloride 0.9% 10ml Syr (Rad Only) IV 03/12/24 14:52 10 ml ONCE ONE Administration ORDERS Category Date Time Status CT abdomen pelvis w con Stat Cat Scan 03/12/24 14:[address] cervical spine wo con Stat Cat Scan 03/12/24 14:[address] head/brain wo con Stat Cat Scan 03/12/24 14:[address] lumbar spine wo con Stat Cat Scan 03/12/24 14:[address] thoracic spine wo con Stat Cat Scan 03/12/24 14:05 Completed Femur XR left 2 views [XR femur LT 2V] Stat Exams 03/12/24 14:05 Completed Hip XR left minimum 2 views [XR hip LT 2-3V w/pelvis] Exams 03/12/24 14:05 Completed Stat Knee XR left 3 views [XR knee LT 3V] Stat Exams 03/12/24 14:05 Completed CBC w/Auto Diff [Complete Blood Count Auto Diff] Stat Lab 03/12/24 13:47 Completed CMP [Comprehensive Metabolic Panel] Stat Lab 03/12/24 13:47 Completed CRP [C-Reactive Protein] Stat Lab 03/12/24 13:47 Completed ESR [Erythrocyte Sedimentation Rate] Stat Lab 03/12/24 13:47 Completed HIV (1&2) Antibody Rapid Stat Lab 03/12/24 13:47 Completed Hep C Ab with Reflex to RNA Stat Lab 03/12/24 13:47 Received Lipase Stat Lab 03/12/24 13:47 Completed UA [Urinalysis and Microscopic] Stat Lab 03/12/24 13:42 Completed Medical Decision Narrative: In summary, this patient is a 73-year-old male presenting to the Emergency Department for evaluation of multiple complaints including joint pains, left lower quadrant pain concerning for diverticulitis, and fall today. Differential diagnoses considered include but are not limited to traumatic injury from fall, arthritis flare, septic arthritis, gouty arthritis, diverticulitis, colitis, constipation. Ruling out the most morbid conditions drove assessment. On exam, the patient is very well-appearing. He has mild left lower quadrant tenderness but otherwise abdominal exam is benign. He is full range of motion of his left knee with no redness, warmth, or significant effusion that would be concerning for septic arthritis. He is still able to bear weight as well, which also makes this less concerning. Workup included CBC, CMP, lipase, urinalysis, EKG, CT head without contrast, CT C/T/L-spine without contrast, CT abdomen and pelvis with IV contrast, and x-rays of the painful left lower extremity. Labs obtained demonstrated a mild leukocytosis, mildly elevated anion gap, mild hyponatremia, mildly elevated bilirubin. CRP is elevated. EKG is reassuring. CT scans and x-rays pending. Patient care signed out to the oncoming provider, Dr. Barnett. Patient very well-appearing on my reassessment this is Dr. Barnett. Labs returned which are essentially unremarkable from emergency standpoint. There is a mild leukocytosis mild hyperglycemia CRP is mildly elevated and total bilirubin mildly elevated. CT scan of the abdomen pelvis showed uncomplicated diverticulitis also CT scan of the head and spines were performed and personally evaluated by me which were unremarkable for emergency standpoint there are some degenerative changes. X-rays of the extremity also were performed and personally evaluated by me no fractures or dislocation has been advised to follow-up with a general surgeon regarding his uncomplicated diverticulitis and return precautions emphasized to come back with acute worsening of his abdominal pain or high fevers and with an orthopedic surgeon given his chronicity of his knee pain which preceded today's fall. Patient was discharged in stable condition. Critical Care <Loreto Nicholas, DO - Last Filed: 03/12/24 15:23> Critical Care Time Critical Care Time: No
[2024-03-12 14:10] LABS: Basophils # 0.1 K/mm3 (0-0.2); Basophils % 0.5 % (0.1-2.0); Eosinophils # 0.1 K/mm3 (0.0-0.4); Eosinophils % 0.6 % (0.1-12.0); Hematocrit 49.2 % (42.0-52.0); Hemoglobin 16.4 g/dL (14.1-18.0); Lymphocytes # 1.1 K/mm3 (0.7-4.5); Lymphocytes % 9.4 % (10-50); Mean Corpuscular HGB Conc 33.3 g/dL (31.8-35.4); Mean Corpuscular Hemoglobin 28.5 pg (27.0-31.2); Mean Corpuscular Volume 85.6 fl (80-94); Mean Platelet Volume 7.3 fl (7.4-10.4); Monocytes # 0.8 K/mm3 (0.1-1.0); Monocytes % 6.2 % (1.7-9.3); Neutrophils % 83.2 % (37.0-80.0); Platelet Count 260 K/mm3 (142-424); Red Blood Count 5.75 M/mm3 (4.60-6.20); Red Cell Distribution Width 13.7 % (11.5-17.5)
--- NOTE | 2024-03-12 14:10 | PC.NURSE ---
pt to scan via wheelchair
[2024-03-12 14:12] LABS: Microscopic, Urine URINE MICROSCOPIC (MICROSCOPIC)
[2024-03-12 14:13] LABS: Albumin Level 4.9 g/dl (3.5-5.0); Chloride 95 mmol/L (98-107); Potassium 3.6 mmoL/L (3.5-5.1); Sodium 133 mmol/L (136-145)
[2024-03-12 14:16] LABS: Appearance,Urine CLEAR (Clear); Bilirubin,Urine Negative (Negative); Blood, Urine Negative (Negative); Color,Urine YELLOW (Yellow); Glucose,Urine (UA) Negative (Negative); Ketones,Urine TRACE (Negative); Leukocyte Esterase,Urine Negative (Negative); Nitrate,Urine Negative (Negative); PH,Urine 6.5 (5.0-8.5); Protein,Urine Negative (Negative); Urobilinogen,Urine 0.2 EU/dl (0.2)
[2024-03-12 14:16] LABS: Alanine Aminotransferase 21 U/L (12-78); Albumin/Globulin Ratio 1.6 (1.1-1.8); Alkaline Phosphatase 50 U/L (38-126); Anion Gap 15.6 mEq/L (5-15); Aspartate Amino Transferase 27 U/L (17-59); Bilirubin,Total 1.5 mg/dl (0.2-1.3); Blood Urea Nitrogen 15 mg/dl (9-20); Calcium 9.9 mg/dl (8.4-10.2); Carbon Dioxide 26 mmol/L (22.0-30.0); Creatinine Clearance Estimated 67 mL/min (50-200); Estimated Glomerular Filt Rate 82 ml/min (>60); GFR (African American) 100 ML/MIN (>60); Glucose 122 mg/dl (74-100); Total Protein,Serum 7.9 g/dl (6.3-8.2)
[2024-03-12 14:20] LABS: Lipase 64 U/L (23-300)
[2024-03-12 14:21] LABS: C-Reactive Protein 93.5 mg/L (0-4)
[2024-03-12 14:23] LABS: Bacteria,Urine Trace /lpf; WBC,Urine Occasional #/hpf (0-3)
[2024-03-12 14:36] LABS: HIV (1&2) Antibody Rapid NONREACTIVE (NONREACTIVE)
[2024-03-12 14:37] LABS: Erythrocyte Sedimentation Rate 9 mm/hr (0-20)
[2024-03-12] MEDS: IOPAMIDOL-370 (76%);100ML BOTTLE 75 ML IV (14:51)
[2024-03-12] MEDS: SODIUM CHLORIDE 0.9% 10ML SYR (RAD ONLY) 10 ML IV (14:51)
--- NOTE | 2024-03-12 14:53 | ECG_ITS ---
APPROVED REPORT Exam: Resting ECG HR:88 bpm ECG Measurements Heart Rate 88 AXES OH 137 P 61 QRSd 99 QRS 45 QT 345 T 55 QTc 391 Conclusion SINUS RHYTHM NORMAL ECG Electronically signed by : LUIGI DA SILVA, 03/12/2024 15:31:15
[2024-03-12 14:55] VITALS: BP 137/76; PULSE 92; O2SAT 97
[2024-03-12 15:00] VITALS: BP 135/73; PULSE 93; O2SAT 98
[2024-03-12] MEDS: LACTATED RINGERS 1000ML 1,000 ML 999 ML IV (15:08)
[2024-03-12] MEDS: ONDANSETRON 4MG/2ML VIAL 4 MG IV (15:08)
[2024-03-12] MEDS: KETOROLAC 30MG/ML VIAL 15 MG IV (15:08)
[2024-03-12 16:11] VITALS: BP 135/68; PULSE 85; RESP 16; TEMP 36.8; O2SAT 97
[2024-03-14 05:15] LABS: HCV Ab Non Reactive (Non Reactive)
== END 2024-03-12 16:12 | disposition home or self-care (01) ==
PROVIDERS: Emergency Provider Emergency Medicine; PCP Family Medicine
DX: K57.92 Diverticulitis of intestine, part unspecified, without perforation or abscess without bleeding (principal); M25.562 Pain in left knee
CPT/HCPCS: 70450; 72125; 72128; 72131; 73502; 73552; 73562; 74177; 80053; 81001; 83690; 85025; 85651; 86140; 86803; 87389; 93005; 96361; 96374; 96375; 99285; J1885; J2405; J7120; Q9967

== ENCOUNTER 2025-05-07 13:51 | Outpatient (CLI) | payer MEDICARE, OTHER, SELFPAY ==
--- OUTSIDE RECORDS SUMMARY | 2025-04-27 10:45 | XMS_ITS | Encounter Summary ---
Author Organization [facility] Address [address] [place] [id number] Care Team Providers Care Supervisor Machine Setter Name Role Phone Donell Arteaga MD Primary Care Provider + Reason for Referral * MRI/CAT/PET Scan (Routine) - Pending Review Specialty Diagnoses / Procedures Referred By Contac t Referred To Contact Radiology Diagnoses Chronic right maxillary sinusitis Procedures CT Sinus Without Contrast Donell Arteaga MD [address] [place] [address] Phone: tel: fax: [facility] [address] [place] [address] Phone: tel: Referral ID Status Reason Start Date Expiration Date V isits Requested Visits Authorized [id number] Pending Review 04/27/2025 07/27/2026 1 1 Reason for Visit * Reason Comments Sinusitis Right sinus pain Encounter Details Date Type Department Care Team (Late st Contact Info) Description 04/27/2025 10:45 AM EST Office Visit [facility] [address] [place] [address] Donell Arteaga MD [address] [place] [address] Chronic right maxillary sinusitis (Primary Dx) Social History Tobacco Use Types Packs/Day Years Used Date Smoking Tobacco: Never Smokeless Tobacco: Never Alcohol Use Standard Drinks/Week Comments Yes 3 (1 standard drink = 0.6 oz pur e alcohol) occas PHQ-2 Answer Date Recorded Retired PHQ-9: Brief Depression Severity Measure Score 0 12/28/2022 PHQ-2 Answer Date Recorded Patient Health Questionnaire-2 Score 0 04/27/2025 Sex and Gender Information Value Date Recorded Sex Assigned at Male 03/11/2023 9:39 AM EDT Legal Sex Male 1:51 PM EDT Gender Identity Male 03/11/2023 9:39 AM EDT Sexual Orientation Straight 03/11/2023 9: 39 AM EDT documented as of this encounter Last Filed Vital Signs Vital Sign Reading Time Taken Comments Blood Pressure 136/66 04/27/2025 10:38 AM EST Pulse 70 04/27/2025 10:38 AM EST Temperature 36.3 C (97.3 F) 04/27/2025 10:38 AM EST Respiratory Rate 20 04/27/2025 10:38 AM EST Oxygen Saturation 100% 04/27/2025 10:38 AM EST Inhaled Oxygen Concentration - - Weight 77.4 kg (170 lb 9.6 oz) 04/27/2025 10:38 AM EST Height 167.6 cm (5' 6 ) 04/27/2025 10:38 AM EST Body Mass Index 27.54 04/27/2025 10:38 AM EST documented in this encounter Functional Status documented as of this encounter Progress Notes * Donell Arteaga MD - 04/27/2025 10:45 AM EST Chief Complaint Patient presents with Sinusitis Right sinus pain Subjective Thong Michele is a 74 y.o. who presents for right sided sinus pain that has been ongoing for many years. There is a constant pressure. Breathing becomes difficult when supine and trying to sleep. There will be active drainage from the right upper teeth or gumline. 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 He denies fevers or chills. He saw an ear nose and throat physician many years ago and describes having nasopharyngoscopy performedwithout significant findings. Objective Vital Signs: BP 136/66 Pulse 70 Temp 97.3 ??F (36.3 ??C) Resp 20 Ht 167.6 cm (66 ) Wt 77.4 kg (170 lb 9.6 oz) SpO2 100% BMI 27.54 kg/m?? Physical Exam Vitals reviewed. Constitutional: Appearance: Normal appearance. HENT: Nose: Congestion and rhinorrhea present. Right Turbinates: Enlarged and swollen. Right Sinus: Maxillary sinus tenderness present. Mouth/Throat: Mouth: Mucous membranes are moist. Dentition: Gum lesions present. No dental tenderness. Pharynx: Oropharynx is clear. Comments: Small papular lesion above the first right upper bicuspid Neurological: Mental Status: He is alert. Result Review Assessment and Plan Diagnoses and all orders for this visit: 1. Chronic right maxillary sinusitis (Primary) - CT Sinus Without Contrast; Future Plan: Patient is going to need further evaluation for his chronic right sinus pain. CT scan of the sinuses will be ordered and then referral to ENT for review and likely repeat nasopharyngoscopy Follow Up No follow-ups on file. Patient was given instructions and counseling regarding his condition or for health maintenance advice. Please see specific information pulled into the AVS if appropriate. documented in this encounter Plan of Treatment Scheduled Orders Name Type Priority Associated Diagnoses Orde r Schedule CT Sinus Without Contrast Imaging Routine Chronic right maxillary sinusitis Expected: 04/28/2025, Expires: 07/28/2026 documented as of this encounter Visit Diagnoses Diagnosis Chronic right maxillary sinusitis- Primary documented in this encounter Care Teams Supervisor Machine Setter Relationship Specialty Start Date End Date Donell Arteaga MD PCP - General Family Medicine 01/16/21 documented as of this encounter
--- OUTSIDE RECORDS SUMMARY | 2025-05-07 13:54 | XMS_ITS | Encounter Summary ---
Author Organization [facility] Address [address] [place] [address] Care Team Providers Care Moving Worker Name Role Phone Donell Arteaga MD Primary Care Provider + Encounter Details Date Type Department Care Team (Latest Contact Info) Description 04/27/2025 Travel Social History Tobacco Use Types Packs/Day Years [...] AM EDT documented as of this encounter Functional Status documented as of this encounter Plan of Treatment Not on file documented as of this encounter Visit Diagnoses Not on filedocumented in this encounter Care Teams Moving Worker Relationship Specialty Start Date End Date Donell Arteaga MD PCP - General Family Medicine 01/16/21 documented as of this encounter
--- NOTE | 2025-05-07 13:55 | CT_ITS ---
FINAL REPORT TECHNIQUE: Thin section axial images were obtained through the paranasal sinuses without contrast. Reconstruction images were obtained from the axial data. Exam was performed using dose reduction techniques such as automated exposure control, adjustment of the mA and kV according to patient size, and use of iterative reconstruction technique. CLINICAL HISTORY: CHRONIC SINUSITIS COMPARISON: None FINDINGS: There is mucoperiosteal thickening in the floor of the left maxillary sinus and within the anterior ethmoid air cells bilaterally. There is no air-fluid level. The remaining paranasal sinuses are clear. The maxillary infundibulum is patent bilaterally. There is mild left nasal septal deviation. 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 The mastoid air cells are clear. The remaining soft tissues are without acute abnormality. IMPRESSION: Mucoperiosteal thickening of the left maxillary sinus and ethmoid air cells, likely chronic. Anatomic variants as above. Reviewed, Interpreted and Dictated by Aliza Esteves MD Transcribed by Silvia Grimes Authenticated and . [facility]
--- OUTSIDE RECORDS SUMMARY | 2025-05-07 13:55 | XMS_ITS | Clinical Summary ---
Author Organization [facility] Address [address] [place] [address] Care Team Providers Care Barman Name Role Phone Donell Arteaga MD Primary Care Provider + Allergies No known active allergies Medications ibuprofen (ADVIL,MOTRIN) 600 MG tablet Take 1 tablet by mouth Every 6 (Six) Hours As Needed for Mild Pain. Active psyllium (METAMUCIL) 58.6 % packet Take 1 packet by mouth 2 (Two) Times a Day. Active mupirocin (BACTROBAN) 2 % ointmentIndicat ions:External nasal lesion Apply 1 application topically to the appropriate area as directed 3 (Three) Times a Day. 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 [address] [place] [address] Donell Arteaga MD Chronic right maxillary sinusitis (Primary Dx) 04/27/2025 Travel from Last 3 Months Family History Medical History Relation Name Comments Diabetes Father Thong C. Leny Hearing loss Father Thong Schneider. Sherman Heart disease Father Thong C. Sherman Hyperlipidemia Father Thong C. Sherman Stroke Father Thong C. Leny Vision loss Father Thong C. Sherman Other Mother Gita mike Relation Name Status Comments Father Thong Schneider. Sherman Mother Gita Social History Tobacco Use Types Packs/Day Years Used Date Smoking Tobacco: Never Smokeless Tobacco: Never Tobacco Cessation:Counseling Given: Not Answered Alcohol Use Standard Drinks/Week Comments Yes 3 [...] Orientation Straight 03/11/2023 9: 39 AM EDT Last Filed Vital Signs Vital Sign Reading [...] Mass Index 27.54 04/27/2025 10:38 AM EST Plan of Treatment Health Maintenance Due Date Last Done Comments TDAP/TD VACCINES (1 - Tdap) 1968 COLOGUARD 1994 COLON CANCER SCREENING [address] COLONOGRAPHY 1994 FECAL OCCULT BLOOD TEST 1994 FIT Testing (1 year) 1994 Pneumococcal Vaccine 50+ (1 of 1 - PCV) 1999 ZOSTER VACCINE (1 of 2) 1999 RSV Vaccine - Adults (1 - 1-dose 75+ series) 2024 ANNUAL WELLNESS VISIT 10/07/2024 10/08/2023 , 10/08/2023, 07/26/2021, Additional history exists INFLUENZA VACCINE 01/08/2025 COVID-19 Vaccine (#1) 05/11/2025 Postpo chance from 1954 (Product Unavailable) COLONOSCOPY 08/15/2030 08/15/2020 COLORECTAL CANCER SCREENING 08/15/2030 HEPATITIS C SCREENING Completed 03/12/2024 Insurance MEDICARE A & B [employer] [facility] Advance Directives Documents on File Type Date Recorded Patient Metal Fabricator Expl anation LIVING WILL - SCAN 01/18/2021 10:35 AM CATHERINE MUÑOZ, 02/20/2017 * CPR (Attempt to Resuscitate) (Latest Code Status on File) Date Activated Date Inactivated Comments 01/19/2021 1:03 PM 01/20/2021 2:16 PM Question Answer Comments Code Status (Patient has no pulse and is not breathing): CPR (Attempt to Resuscitate) Medical Interventions (Patie nt has pulse or is breathing): Full Care Teams Barman Relationship Specialty Start Date End Date Donell Arteaga MD PCP - General Family Medicine 01/16/21
--- OUTSIDE RECORDS SUMMARY | 2025-05-07 13:55 | XMS_ITS | Data Portability ---
Author Organization [facility] RAMYA SchroederS [place] CLOSED Address [address] [place] [address] Care Team Providers Care Camp Manager Name Role Phone MIRELA MIRANDA Primary Care Provider [phone] Assessment No assessment recorded. Plan of Treatment Reminders Order Date Submit Date Provider Last Modified By Organization Details Last Modified Time Details Appointments None recorded. Lab urinalysis panel, auto [address] [facility], [address], [address], [place], [address], 11:58:13 PSA, serum or plasma 2021 BIRD [facility], [address], [address], [place], [address], 16:55:06 urinalysis panel, auto [id number] [facility], [address], [address], [place], [address], 14:52:25 urinalysis panel, auto [email or web address] [facility], [address], [address], [place], [address], 15:10:24 urinalysis panel, auto 2020 021 jerald [facility], [address] [place] [address], [address], [place], [address], 15:08:19 Referral None recorded. Procedures None recorded. Surgeries None recorded. Imaging None recorded. Medication Orders sildenafil (pulmonary hypertensio n) 20 mg tablet 2021 022 [facility], [address], [address], 11:58:21 sildenafil (pulmonary hypertensio n) 20 mg tablet 2020 021 [facility], [address], [address], 15:10:32 Patient TargetsNo targets recorded. Patient InstructionsNo instructions recorded. Reason for Referral None Reported. Results Created Date Observation Date Name Description Value Unit Range Abnormal Flag Note LastModifiedBy Organization Detail LastModifiedTime 03/10/2003/10/2021 urina lysis panel , auto Unknown Analyte Clean Catch Not Available [facility] [address], [place], [address], 03/10/2021 14:32:28 03/10/2003/10/2021 urina lysis panel , auto Unknown Analyte Yellow Not Available [facility] [address], [place], [address], 03/10/2021 14:32:28 03/10/20 21 03/10/2021 urina lysis panel , auto Unknown Analyte Clear Not Available [facility] [address], [place], [address], 03/10/2021 14:32:28 03/10/2003/10/2021 urina lysis panel , auto Unknown Analyte 1.000 Not Available [facility] [address], [place], [address], 03/10/2021 14:32:28 03/10/2003/10/2021 urina lysis panel , auto Unknown Analyte 1.003- 1.035 Not Available [facility] [address], [place], [address], 03/10/2021 14:32:28 03/10/2003/10/2021 urina lysis panel , auto Unknown Analyte 7.0 Not Available [facility] [address], [place], [address], 03/10/2021 14:32:28 03/10/2003/10/2021 urina lysis panel , auto Unknown Analyte 5.0-8. 0 Not Available [facility] [address], [place], [address], 03/10/2021 14:32:28 03/10/2003/10/2021 urina lysis panel , auto Unknown Analyte 75 Harris/ul (+) Not Available [facility] [address], [place], [address], 03/10/2021 14:32:28 03/10/2003/10/2021 urina lysis panel , auto Unknown Analyte Negati ve Not Available [facility] [address], [place], [address], 03/10/2021 14:32:28 03/10/2003/10/2021 urina lysis panel , auto Unknown Analyte Negati ve Not Available [facility] [address], [place], [address], 03/10/2021 14:32:28 03/10/2003/10/2021 urina lysis panel , auto Unknown Analyte Negati ve Not Available [facility] [address], [place], [address], 03/10/2021 14:32:28 03/10/2003/10/2021 urina lysis panel , auto Unknown Analyte Negati ve Not Available [facility] [address], [place], [address], 03/10/2021 14:32:28 03/10/2003/10/2021 urina lysis panel , auto Unknown Analyte Negati ve Not Available [facility] [address], [place], [address], 03/10/2021 14:32:28 03/10/2003/10/2021 urina lysis panel , auto Unknown Analyte Normal Not Available [facility] [address], [place], [address], 03/10/2021 14:32:28 03/10/2003/10/2021 urina lysis panel , auto Unknown Analyte Normal Not Available [facility] [address], [place], [address], 03/10/2021 14:32:28 03/10/2003/10/2021 urina lysis panel , auto Unknown Analyte Negati ve Not Available [facility] [address], [place], [address], 03/10/2021 14:32:28 03/10/2003/10/2021 urina lysis panel , auto Unknown Analyte Negati ve Not Available [facility] [address], [place], [address], 03/10/2021 14:32:28 03/10/2003/10/2021 urina lysis panel , auto Unknown Analyte Normal Not Available [facility] [address], [place], [address], 03/10/2021 14:32:28 03/10/2003/10/2021 urina lysis panel , auto Unknown Analyte Normal 1 mg/dl Not Available [facility] [address], [place], [address], 03/10/2021 14:32:28 03/10/2003/10/2021 urina lysis panel , auto Unknown Analyte Negati ve Not Available [facility] [address], [address], 03/10/2021 14:32:28 03/10/2003/10/2021 urina lysis panel , auto Unknown Analyte Negati ve Not Available [facility] [address], [place], [address], 03/10/2021 14:32:28 03/10/2003/10/2021 urina lysis panel , auto Unknown Analyte 50 Paul/ul Not Available [facility] [address], [place], [address], 03/10/2021 14:32:28 03/10/2003/10/2021 urina lysis panel , auto Unknown Analyte Negati ve Not Available [facility] [address], [place], [address], 03/10/2021 14:32:28 01/28/2001/27/2021 urina lysis panel , auto Unknown Analyte Clean Catch Not Available [facility] [address], [place], [address], 01/27/2021 14:06:14 01/28/2001/27/2021 urina lysis panel , auto Unknown Analyte Yellow Not Available [facility] [address], [place], [address], 01/27/2021 14:06:14 01/28/20 21 01/27/2021 urina lysis panel , auto Unknown Analyte Clear Not Available [facility] [address] [place] [address] Rd [address], [place], [address], 01/27/2021 14:06:14 01/28/20 21 01/27/2021 urina lysis panel , auto Unknown Analyte 1.005 Not Available [facility] [address], [place], [address], 01/27/2021 14:06:14 01/28/20 21 01/27/2021 urina lysis panel , auto Unknown Analyte 1.003- 1.035 Not Available [facility] [address], [place], [address], 01/27/2021 14:06:14 01/28/20 21 01/27/2021 urina lysis panel , auto Unknown Analyte 7.0 Not Available [facility] [address], [place], [address], 01/27/2021 14:06:14 01/28/20 21 01/27/2021 urina lysis panel , auto Unknown Analyte 5.0-8. 0 Not Available [facility] [address], [place], [address], 01/27/2021 14:06:14 01/28/2001/27/2021 urina lysis panel , auto Unknown Analyte 75 Harris/ul (+) Not Available [facility] [address], [place], [address], 01/27/2021 14:06:14 01/28/2001/27/2021 urina lysis panel , auto Unknown Analyte Negati ve Not Available [facility] [address], [place], [address], 01/27/2021 14:06:14 01/28/20 21 01/27/2021 urina lysis panel , auto Unknown Analyte Negati ve Not Available [facility] [address], [place], [address], 01/27/2021 14:06:14 01/28/20 21 01/27/2021 urina lysis panel , auto Unknown Analyte Negati ve Not Available [facility] [address], [place], [address], 01/27/2021 14:06:14 01/28/2001/27/2021 urina lysis panel , auto Unknown Analyte Negati ve Not Available [facility] [address], [place], [address], 01/27/2021 14:06:14 01/28/2001/27/2021 urina lysis panel , auto Unknown Analyte Negati ve Not Available [facility] [address], [place], [address], 01/27/2021 14:06:14 01/28/2001/27/2021 urina lysis panel , auto Unknown Analyte Normal Not Available [facility] [address], [place], [address], 01/27/2021 14:06:14 01/28/2001/27/2021 urina lysis panel , auto Unknown Analyte Normal Not Available [facility] [address], [place], [address], 01/27/2021 14:06:14 01/28/2001/27/2021 urina lysis panel , auto Unknown Analyte Negati ve Not Available [facility] [address], [place], [address], 01/27/2021 14:06:14 01/28/20 21 01/27/2021 urina lysis panel , auto Unknown Analyte Negati ve Not Available [facility] [address] [place] [address] [address], [place], [address], 01/27/2021 14:06:14 01/28/20 21 01/27/2021 urina lysis panel , auto Unknown Analyte Normal Not Available [facility] [address] [place] [address] [address], [place], [address], 01/27/2021 14:06:14 01/28/2001/27/2021 urina lysis panel , auto Unknown Analyte Normal 1 mg/dl Not Available [facility] [address], [place], [address], 01/27/2021 14:06:14 01/28/2001/27/2021 urina lysis panel , auto Unknown Analyte Negati ve Not Available [facility] [address], [place], [address], 01/27/2021 14:06:14 01/28/2001/27/2021 urina lysis panel , auto Unknown Analyte Negati ve Not Available [facility] [address] [place] [address] [address], [place], [address], 01/27/2021 14:06:14 01/28/2001/27/2021 urina lysis panel , auto Unknown Analyte 250 Paul/ul Not Available [facility] [address] [place] [address] [address], [place], [address], 01/27/2021 14:06:14 01/28/20 21 01/27/2021 urina lysis panel , auto Unknown Analyte Negati ve Not Available [facility] [address], [place], [address], 01/27/2021 14:06:14 09/23/19 22 09/22/2021 urina lysis panel , auto Unknown Analyte 1.010 Not Available [facility] [address], [place], [address], 09/22/2021 15:51:30 09/23/19 22 09/22/2021 urina lysis panel , auto Unknown Analyte 1.003- 1.035 Not Available [facility] [address], [place], [address], 09/22/2021 15:51:30 09/23/19 22 09/22/2021 urina lysis panel , auto Unknown Analyte 7.0 Not Available [facility] [address], [place], [address], 09/22/2021 15:51:30 09/23/19 22 09/22/2021 urina lysis panel , auto Unknown Analyte 5.0-8. 0 Not Available [facility] [address] [place] [address] [address], [place], [address], 09/22/2021 15:51:30 09/23/19 22 09/22/2021 urina lysis panel , auto Unknown Analyte 25 Harris/ul Trace Not Available [facility] [address] [place] [address] [address], [place], [address], 09/22/2021 15:51:30 09/23/19 22 09/22/2021 urina lysis panel , auto Unknown Analyte Negati ve Not Available [facility] [address], [place], [address], 09/22/2021 15:51:30 09/23/19 22 09/22/2021 urina lysis panel , auto Unknown Analyte Negati ve Not Available [facility] [address], [place], [address], 09/22/2021 15:51:30 09/23/19 22 09/22/2021 urina lysis panel , auto Unknown Analyte Negati ve Not Available [facility] [address], [place], [address], 09/22/2021 15:51:30 09/23/19 22 09/22/2021 urina lysis panel , auto Unknown Analyte Negati ve Not Available [facility] [address], [place], [address], 09/22/2021 15:51:30 09/23/19 22 09/22/2021 urina lysis panel , auto Unknown Analyte Negati ve Not Available [facility] [address], [place], [address], 09/22/2021 15:51:30 09/23/19 22 09/22/2021 urina lysis panel , auto Unknown Analyte Normal Not Available [facility] [address], [place], [address], 09/22/2021 15:51:30 09/23/19 22 09/22/2021 urina lysis panel , auto Unknown Analyte Normal Not Available [facility] [address], [place], [address], 09/22/2021 15:51:30 09/23/19 22 09/22/2021 urina lysis panel , auto Unknown Analyte Negati ve Not Available [facility] [address], [place], [address], 09/22/2021 15:51:30 09/23/19 22 09/22/2021 urina lysis panel , auto Unknown Analyte Negati ve Not Available [facility] [address], [place], [address], 09/22/2021 15:51:30 09/23/19 22 09/22/2021 urina lysis panel , auto Unknown Analyte Normal Not Available [facility] [place] [address], [place], [address], 09/22/2021 15:51:30 09/23/19 22 09/22/2021 urina lysis panel , auto Unknown Analyte Normal 1 mg/dl Not Available [facility] [place] [address], [place], [address], 09/22/2021 15:51:30 09/23/19 22 09/22/2021 urina lysis panel , auto Unknown Analyte Negati ve Not Available [facility] [address], [place], [address], 09/22/2021 15:51:30 09/23/19 22 09/22/2021 urina lysis panel , auto Unknown Analyte Negati ve Not Available [facility] [address], [place], [address], 09/22/2021 15:51:30 09/23/19 22 09/22/2021 urina lysis panel , auto Unknown Analyte Negati ve Not Available [facility] [address], [place], [address], 09/22/2021 15:51:30 09/23/1909/22/2021 urina lysis panel , auto Unknown Analyte Negati ve Not Available [facility] [address], [address], 09/22/2021 15:51:30 03/26/20 22 03/26/2022 PSA, serum or plasm a PSA 1.5 NG/mL 0.0 - 4.0 Not Available [facility] [address], [place], [address], 03/26/2022 11:13:48 03/26/2003/26/2022 urina lysis panel , auto Unknown Analyte Clean Catch Not Available [facility] [address], [place], [address], 03/26/2022 11:13:08 03/26/2003/26/2022 urina lysis panel , auto Unknown Analyte Yellow Not Available [facility] [address], [place], [address], 03/26/2022 11:13:08 03/26/2003/26/2022 urina lysis panel , auto Unknown Analyte Clear Not Available [facility] [address], [place], [address], 03/26/2022 11:13:08 03/26/2003/26/2022 urina lysis panel , auto Unknown Analyte 1.005 Not Available [facility] [address], [place], [address], 03/26/2022 11:13:08 03/26/2003/26/2022 urina lysis panel , auto Unknown Analyte 1.003- 1.035 Not Available [facility] [address], [place], [address], 03/26/2022 11:13:08 03/26/2003/26/2022 urina lysis panel , auto Unknown Analyte 7.0 Not Available [facility] [address], [place], [address], 03/26/2022 11:13:08 03/26/2003/26/2022 urina lysis panel , auto Unknown Analyte 5.0-8. 0 Not Available [facility] [address], [place], [address], 03/26/2022 11:13:08 03/26/2003/26/2022 urina lysis panel , auto Unknown Analyte Negati ve Not Available [facility] [address] [place] [address] [address], [place], [address], 03/26/2022 11:13:08 03/26/2003/26/2022 urina lysis panel , auto Unknown Analyte Negati ve Not Available [facility] [address], [place], [address], 03/26/2022 11:13:08 03/26/2003/26/2022 urina lysis panel , auto Unknown Analyte Negati ve Not Available [facility] [address], [place], [address], 03/26/2022 11:13:08 03/26/2003/26/2022 urina lysis panel , auto Unknown Analyte Negati ve Not Available [facility] [address], [place], [address], 03/26/2022 11:13:08 03/26/2003/26/2022 urina lysis panel , auto Unknown Analyte Negati ve Not Available [facility] [address], [place], [address], 03/26/2022 11:13:08 03/26/2003/26/2022 urina lysis panel , auto Unknown Analyte Negati ve Not Available [facility] [address], [place], [address], 03/26/2022 11:13:08 03/26/2003/26/2022 urina lysis panel , auto Unknown Analyte Normal Not Available [facility] [address], [place], [address], 03/26/2022 11:13:08 03/26/2003/26/2022 urina lysis panel , auto Unknown Analyte Normal Not Available [facility] [address], [place], [address], 03/26/2022 11:13:08 03/26/2003/26/2022 urina lysis panel , auto Unknown Analyte Negati ve Not Available [facility] [address] [place] [address] [address], [place], [address], 03/26/2022 11:13:08 03/26/2003/26/2022 urina lysis panel , auto Unknown Analyte Negati ve Not Available [facility] [address], [place], [address], 03/26/2022 11:13:08 03/26/2003/26/2022 urina lysis panel , auto Unknown Analyte Normal Not Available [facility] [address] [place] [address] [address], [place], [address], 03/26/2022 11:13:08 03/26/2003/26/2022 urina lysis panel , auto Unknown Analyte Normal 1 mg/dl Not Available [facility] [address] [place] [address] [address], [place], [address], 03/26/2022 11:13:08 03/26/2003/26/2022 urina lysis panel , auto Unknown Analyte Negati ve Not Available [facility] [address] [place] [address] [address], [place], [address], 03/26/2022 11:13:08 03/26/2003/26/2022 urina lysis panel , auto Unknown Analyte Negati ve Not Available [facility] [address], [place], [address], 03/26/2022 11:13:08 03/26/20 22 03/26/2022 urina lysis panel , auto Unknown Analyte Negati ve Not Available [facility] [address] [place] [address] [address], [place], [address], 03/26/2022 11:13:08 03/26/20 22 03/26/2022 urina lysis panel , auto Unknown Analyte Negati ve Not Available [facility] [address] [place] [address] [address], [place], [address], 03/26/2022 11:13:08 11/24/19 21 11/22/2020 CT, abdom en + pelvi s, w/ contr ast No observ ation record ed. [email or web address] Not Available 2020 11:37:30 Result Notes None recorded. Problems No Known Problems Procedures Surgical History Date Name Laterality Status Provider Name and Address Organization Details Recorded Time 1 Post Void Residual; Ultrasound completed [facility] 03/10/2021 14:32:22 1 Post Void Residual; Ultrasound completed [facility] 01/27/2021 14:19:53 Imaging Results None recorded. Procedure Notes None recorded. Medical Equipment None Reported. Allergies No known drug allergies Medications Name Sig Start Date Stop Date Status Note LastModified by Organization Details LastModified Time sildenafil (pulmonary hypertension ) 20 mg tablet Take 1 tablet every day by oral route as needed. 022 active Not Available Not Available Not Avai lable Vitals Date Recorded Body height Body mass index (BMI) Body weight Provider Name and Address Organization Details Last Updated DateTime 11/29/2020 167.64 cm 24.2 kg/m2 87287.86 g [facility] 11/29/2020 16:23:29 Date Recorded Body height Body mass index (BMI) Body weight Provider Name and Address Organization Details Last Updated DateTime 01/27/2021 167.64 cm 24.2 kg/m2 59312.86 g Babs Faith [facility] 01/27/2021 14:07:14 Date Recorded Body height Body mass index (BMI) Body weight Provider Name and Address Organization Details Last Updated DateTime 03/10/2021 167.64 cm 24.2 kg/m2 67853.86 g Tomeka Hannah [facility] 03/10/2021 14:31:55 Social History Question Answer Notes LastModified by Organ[employer]at [employer] Details LastModified Time Tobacco Smoking Status Never Smoker Tomeka Hannah [facility] 11/29/2020 16:28:27 How Much Tobacco Do You Chew? None Information not available 11/29/2020 Marital Status [email or web address] Informatio n not available 11/29/2020 What Is Your Relationship Status? [email or web address] Information not available 03/10/2021 How Much Tobacco Do You Smoke? No Information not available 11/29/2020 Has Tobacco Cessation Counseling Been Provided? No Information not available 03/10/2021 Have You Recently Traveled Abroad? No Information not available 03/10/2021 Sex: Unknown Functional Status Question Answer Note LastModified by Organizat ion Details LastModified Time Do you use any illicit or recreational drugs? No [email or web address] Information not available 03/10/2021 Do you or have you ever used any other forms of tobacco or nicotine? No [email or web address] Information not available 03/10/2021 What is your level of alcohol consumption? Occasional [email or web address] Information not available 11/29/2020 Do you or have you ever used smokeless tobacco? Never used smokeless tobacco Information not available 11/29/2020 Do you or have you ever used e-cigarettes or vape? Never used electronic cigarettes [email or web address] Information not available 11/29/2020 Mental Status None recorded. Family History Relationship Description Onset Age of this Age Resolved Age Notes LastModified by Organization Details LastModified Time Father Diabetes mellitus [email or web address] Not available 11/29 16:26:49 Medical History Condition Response Depression Y Past Encounters Encounter ID Performer Location Encounter Start Date Encounter Closed Date Diagnosis/Indication Diagnosis SNOMED-CT Code Diagnosis ICD10 Code Diagnosis IMO Codes Diagnosis Note [id number] ARAM QUICK MD [facility] [address] [place] [phone] 11/29/2020 15:43:42 11/29/2020 16:47:02 Mass of urinary bladder 601558814 N32.89 and a long discussion regarding cystoscopy with resection and biopsy of this lesion. I also discussed the hydronephr osis and that this will need to be further evaluated asiya g his pathology. He understand s and wishes to proceed. He is here today with his . All questions were answered. Hydronephrosis 41736048 N13.30 as above [id number] ARAM QUICK MD [facility] [address] [place] [id number] 01/27/2021 13:49:10 01/27/2021 14:33:23 Benign prostatic hyperplasia with outflow obstruction 658010155 N40.1 doing well following TURP follow-up 6 weeks [id number] ARAM QUICK MD [facility] [address] [address] 03/10/2021 13:37:38 03/10/2021 16:42:25 Benign prostatic hyperplasia 182631163 N40.0 which improved following TURP follow-up 6 months Primary er ectile dysfunction 173499432 N52.9 trial of sildenafil [id number] ARAM QUICK MD [facility] [address] [address] 09/22/2021 14:40:58 09/22/2021 16:09:38 Benign prostatic hyperplasia with outflow obstruction 566975143 N40.1 doing well following TURP follow-up 6 months with PSA, prostate exam and post void residual. We will been moving him to yearly follow-up [id number] ARAM QUICK MD [facility] [address] [place] [address] 03/26/2022 10:59:32 03/26/2022 11:45:34 Prostate specific antigen above reference range 574664207 R97.20 Benign pro static hyperplasia 456218368 N40.0 which improved following TURP follow-up 12 months Primary er ectile dysfunction 135047018 N52.9 trial of sildenafil Health Concerns Section Related Observation LastModified by Organization Detai ls LastModified Time None Recorded Concern Status LastModified by Organization Details LastModified Time None Recorded Advance Directives Directive None Recorded Payers Insurance Date Sequence Insurance Name Policy Number Policy Pappas Covered Member ID Pappas Member ID Guarantor Name 03/26/2022 2 [employer] (MEDICARE SUPPLEMENT) Thong Alden Michele [id number] Thong Michele 03/26/2022 2 [employer] Thong Leny [id number] Thong Michele 03/26/2022 1 [place] Thong Michele [id number] Thong Michele Notes Date Note Type Note Provider Name and Address Organization Details Recorded Time 11/29/2020 text/html patient is here referred for an initial visit after her CT scan [facility] revealed gross left hydronephrosis and what appears to be a mass in the left lower bladder which is either a large amount of prostate tissue or a bladder tumor. He had a PSA back in July which was 2.6. Is never had gross hematuria. He was having originally some abdominal discomfort and in August had a colonoscopy. Apparently they found some polyps and no other pathology. He does have significant nocturia 1-2 times per night. He typically does not have incontinence. He sometimes has difficulty with postvoid dribbling. I reviewed his CT scan disc. ARAM QUICK MD [facility] [place], [address], [facility] 11/30/2020 11:54:48 01/27/2021 text/html patient is here in follow-up transurethral resection prostate 9 days ago. He is voiding well. He remains on bethanechol. Very large postvoid residual during surgery. His bladder scan residual today was 111 mL. His pathology was 14 g of BPH. He feels he empties well typically has no nocturia. No blood in the last 5 days. We discussed gradual return of physical activity. Continue on bethanechol for now. ARAM QUICK MD [facility] [place], [address], [facility] 01/27/2021 15:09:00 03/10/2021 text/html Patient is here for 6 week follow-up after transurethral resection of the prostate. He continues to void well. He had a very post void residual preoperatively. He continues on bethanechol. His residual last visit was 111 mL. His residual today is 199 mL he is comfortable and feels he is emptying well. He typically has nocturia 0. Dimension difficulty achieving and maintaining an erection. We discussed a trial of sildenafil. We discussed dosing. We also discussed titration of his dose ARAM QUICK MD [facility] [place], [address], [facility] 03/14/2021 22:03:01 09/22/2021 text/html Patient is here for scheduled 6 month follow-up with previous history of urinary retention requiring transurethral resection of prostate in February. He continues to void well typically having nocturia 1. He feels he empties well. He also was having issues with moderate erectile dysfunction and has good response to 40 mg of sildenafil. He is quite satisfied from urologic standpoint. ARAM QUICK MD [facility] [place], [address], [facility] 09/24/2021 14:52:57 03/26/2022 text/html patient is here for follow-up of BPH and mild erectile dysfunction. He had transurethral resection of prostate one year ago. He continues to void well perfused A today was 1.5. He typically has nocturia 0 he has good response to sildenafil 40 mg erectile he remains physically active ARAM QUICK MD [facility] [place], [address], [facility] 03/26/2022 11:59:16
== END 2025-05-07 23:59 | disposition home or self-care (01) ==
LOC: RAD 13:53
PROVIDERS: PCP Family Medicine; Visit Provider Family Medicine
DX: J32.0 Chronic maxillary sinusitis (principal); R93.0 Abnormal findings on diagnostic imaging of skull and head, not elsewhere classified
CPT/HCPCS: 70486